=== PATIENT | male | born 1950 | race African-American/Black ===

== ENCOUNTER 2018-04-30 21:57 | Emergency (ER) | payer MEDICARE, MEDICAID ==
[2018-04-30] MEDS ORDERED: Bacitracin pkt 1 gm Pkt TP STA (22:24)
[2018-04-30] MEDS ORDERED: Bacitracin pkt 1 gm Pkt TP ONE (22:25)
[2018-04-30 22:34] LABS: URINE SOURCE CLEAN C
[2018-04-30 22:35] LABS: URINE BILIRUBIN NEGATIVE (NEGATIVE); URINE BLOOD NEGATIVE (NEGATIVE); URINE GLUCOSE (UA) NEGATIVE (NEGATIVE); URINE KETONE NEGATIVE (NEGATIVE); URINE LEUKOCYTE ESTERASE NEGATIVE (NEGATIVE); URINE NITRATE NEGATIVE (NEGATIVE); URINE PROTEIN NEGATIVE (NEGATIVE)
[2018-04-30] MEDS ORDERED: ceFAZolin 1 GM in Sodium Chloride 0.9% 50 ML IV ONE (22:39)
[2018-04-30 22:46] LABS: URINE CLARITY CLEAR (CLEAR); URINE COLOR YELLOW
[2018-04-30 22:47] LABS: URINE MICROSCOPIC INDICATED? NO
[2018-04-30] MEDS ORDERED: Morphine Sulfate 2 mg/mL 1mL Syr IV STA (22:55)
[2018-04-30] MEDS ORDERED: Morphine Sulfate 2 mg/mL 1mL Syr ONE (23:03)
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
--- NOTE | 2018-05-01 10:02 | Diagnostic Imaging Report ---
Left fingers 3 views Indication: Trauma, fifth finger Comparison: none Findings: There are small fractures and soft tissue defect involving the fifth distal phalanx with soft tissue swelling also noted. Overlying wrapping material is noted. Osteopenia is suspected. Mild to moderate degenerative changes are noted. There maybe have been old trauma of the distal radius. IMPRESSION: Small fractures and soft tissue defect and areas of soft tissue swelling of the fifth distal phalanx. Please correlate with clinical history.
== END 2018-05-01 01:03 ==
LOC: ER 21:57
DX: S62.637A Displaced fracture of distal phalanx of left little finger, initial encounter for closed fracture (principal); I10 Essential (primary) hypertension; I63.9 Cerebral infarction, unspecified; W22.8XXA Striking against or struck by other objects, initial encounter; Y93.89 Activity, other specified; Y92.89 Other specified places as the place of occurrence of the external cause; Y99.8 Other external cause status
CPT/HCPCS: 99285; 96365; 96375; 29130; 73130; 81003; 90715; J2270; J1885; J0690; Z7610